=== PATIENT | male | born 2000 | race Caucasian/White ===

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

== ENCOUNTER 2021-02-24 17:32 | Emergency (ER) | payer MEDICAID, SELFPAY ==
[2021-02-24 17:33] VITALS: BP 122/79; PULSE 111; RESP 16; TEMP 37.1; O2SAT 98; BMI 21.8
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
[2021-02-24] MEDS: Doxycycline 100 MG CAPSULE PO (18:45)
== END 2021-02-24 18:46 | disposition home or self-care (01) ==
PROVIDERS: Emergency Provider Emergency Medicine
DX: L03.113 Cellulitis of right upper limb (principal); F17.290 Nicotine dependence, other tobacco product, uncomplicated; F32.9 Major depressive disorder, single episode, unspecified; Z79.899 Other long term (current) drug therapy
CPT/HCPCS: 99283